=== PATIENT | female | born 1960 | race Caucasian/White ===

== ENCOUNTER 2021-10-29 12:23 | Emergency (ER) | payer BC, MEDICAID, OTHER ==
[~2021-10-29] VITALS: Ht 160 cm; Wt 78.0 kg
--- NOTE | 2021-10-29 12:23 | NUR ---
PT BIBS C/O DEPRESSION AND SI WITH NO SPECIFIC PLAN. PT IS AAOX4, NOT IN RESPIRATORY DISTRESS, V/S STABLE, KEPT RESTED AND COMFORTABLE. SITTER AT BEDSIDE. WILL CONTINUE TO MONITOR.
--- NOTE | 2021-10-29 12:35 | NUR ---
URINE SPECIMEN OBTAINED AND SENT TO LAB.
--- NOTE | 2021-10-29 12:37 | NUR ---
SECURITY AT BEDSIDE FOR WANDING. PT PLACED ON A GOWN. BELONGINGS REMOVED AT BEDSIDE.
--- NOTE | 2021-10-29 12:51 | NUR ---
COVID SWAB DONE AND SENT TO LAB
[2021-10-29 13:50] LABS: BILIRUBIN,URINE NEGATIVE (NEGATIVE); COLOR,URINE YELLOW (YELLOW); LEUKOCYTE ESTERASE ,URINE NEGATIVE (NEGATIVE); NITRITE, URINE NEGATIVE (NEGATIVE); PH,URINE 6.5 (5.0-8.0); PROTEIN,URINE NEGATIVE (NEGATIVE); UGLUCOSE NEGATIVE (NEGATIVE); UROBILINOGEN,URINE 0.2 EU/dL (0.2)
[2021-10-29 13:54] LABS: BASOPHILS % (AUTO) 0.5 % (0.0-2.0); EOSINOPHILS % (AUTO) 1.7 % (0.0-6.0); HEMATOCRIT 33 % (33-45); HEMOGLOBIN 10.5 g/dL (11.5-14.8); LYMPHOCYTES # (AUTO) 0.9 K/uL (0.8-4.8); MEAN CORPUSCULAR HGB CONC 32 g/dl (31.0-36.0); MEAN CORPUSCULAR VOLUME 82 fL (82-100); MONOCYTES # (AUTO) 0.2 K/uL (0.1-1.30); MONOCYTES % (AUTO) 6.6 % (2.0-12.0); NEUTROPHILS # (AUTO) 2.3 K/uL (1.8-8.9); NEUTROPHILS % (AUTO) 66.2 % (43.0-81.0); PLATELET COUNT (AUTO) 245 K/uL (150-450); RED BLOOD CELL COUNT(AUTO) 3.98 MIL/uL (4.0-5.2); WHITE BLOOD COUNT (AUTO) 3.5 K/uL (4.3-11.0)
[2021-10-29 14:00] LABS: BACTERIA,URINE Few /HPF (None Seen); RBC,URINE 0-2 /HPF (0-2)
[2021-10-29 14:31] LABS: CALCIUM, SERUM 8.6 mg/dL (8.5-10.1); CARBON DIOXIDE 29 mmol/L (21-32); CHLORIDE 106 mmol/L (98-107); CREATININE 0.8 mg/dL (0.6-1.3); GLUCOSE 83 mg/dL (74-106); POTASSIUM 3.3 mmol/L (3.5-5.1); SODIUM SERUM 140 mmol/L (136-145); UREA NITROGEN, BLOOD 13 mg/dL (7-18)
[2021-10-29 14:37] LABS: ALANINE AMINOTRANSFERASE 15 U/L (12-78); ALBUMIN 3.2 g/dL (3.4-5.0); ALCOHOL, BLOOD < 3 mg/dL (0-0); ALKALINE PHOSPHATASE 91 U/L (46-116); ASPARTATE AMINOTRANSFERASE 10 U/L (15-37); BILIRUBIN,TOTAL 0.2 mg/dL (0.2-1.0); TOTAL PROTEIN, SERUM 6.6 g/dL (6.4-8.2)
--- NOTE | 2021-10-29 16:55 | NUR ---
FAXED CLINICALS TO [facility]TA[facility].
[2021-10-29] MEDS ORDERED: HYDROCODONE/APAP 5/325MG TABLET PO ONE ×2 (17:30)
[2021-10-29] MEDS ORDERED: HYDROCODONE/APAP 5/325MG TABLET ONE (17:56)
--- NOTE | 2021-10-29 18:03 | NUR ---
CALLED INTAKE AWATING FEED BACK.
--- NOTE | 2021-10-29 23:30 | NUR ---
REPORT GIVEN TO [facility] IZZY UNIT 305
--- NOTE | 2021-10-30 00:20 | NUR ---
CALLED [facility] INTAKE FOR AN UPDATE; "PATIENT HAS OUT OF STATE INSURANCE WHICH IS NOT COVERED HERE." PT'S INSURANCE BELONGS TO STATE [facility].
--- NOTE | 2021-10-30 04:30 | NUR ---
PT SLEEPING IN BED. ALL NEEDS MET AT THIS TIME. VSS. WILL CONTINUE TO MONITOR. SAFETY MEASURES CONTINUED
--- NOTE | 2021-10-30 09:45 | NUR ---
CALLED ART TO COME EVALUATE PT.
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
--- NOTE | 2021-10-30 13:13 | NUR ---
CALLED [facility] AND SET UP BLS TRANSPORT ETA 1400
[2021-10-30 13:52] VITALS: BP 126/71
--- NOTE | 2021-10-30 14:07 | NUR ---
REPORT GIVEN TO EMT FOR PT TRANSFER TO [facility]
== END 2021-10-30 14:05 ==
LOC: ER 12:26
DX: R45.851 Suicidal ideations (principal); I10 Essential (primary) hypertension; Z59.01 Sheltered homelessness; G62.9 Polyneuropathy, unspecified; F32.A Depression, unspecified; Z20.822 Contact with and (suspected) exposure to COVID-19
CPT/HCPCS: 36415 ×2; 80048; 80076; 80143; 80307; 80320; 81001; 84132; 85025; 85027; 87426; 99285; C9803; G0480